=== PATIENT | male | born 2000 | race Caucasian/White ===

== ENCOUNTER 2019-07-30 08:05 | Emergency (ER) | payer SELFPAY ==
[2019-07-30] MEDS ORDERED: Tetracaine 0.5% OPTH.SOL 4 ML* 1 DROP BTL LEFT EYE ONE (08:22)
[2019-07-30 08:24] VITALS: BP 120/74
--- NOTE | 2019-07-30 08:27 | UC ---
Eye Complaint HPI - HPI Summary HPI Summary: WHILE AT WORK YESTERDAY SHOVELING DIRT AND MULCH SOMETHING GOT IN HIS LEFT EYE. HAS CLEAR TEARING AND FOREIGN BODY SENSATION. NO VISUAL DISTURBANCES OR PAIN WITH EXTRAOCULAR MOVEMENTS. PT DOES NOT WEAR GLASSES OR CONTACTS. - History of Current Complaint Stated Complaint: EYE ISSUE Time Seen by Provider: 07/30/19 08:18 Hx Obtained From: Patient Onset/Duration: Sudden Onset, Lasting Hours, Still Present Timing: Constant Severity Initially: Moderate Severity Currently: Moderate Pain Intensity: 4 Pain Scale Used: 0-10 Numeric Character: Foreign Body Sensation Aggravating Factor(s): Nothing Alleviating Factor(s): Nothing Associated Signs And Symptoms: Positive: Drainage (Clear). Negative: Photophobia, Vision Impairment Left - Allergies/Home Medications Allergies/Adverse Reactions: Allergies Allergy/AdvReac Type Severity Reaction Status Date / Time No Known Allergies Allergy Verified 07/30/19 08:16 Home Medications: Home Medications Acetaminophen TAB* [Tylenol TAB*] 325 mg PO Q4H PRN 07/30/19 [History Confirmed 07/30/19] PMH/Surg Hx/FS Hx/Imm Hx Previously Healthy: Yes - Surgical History Surgical History: None - Family History Known Family History: Positive: Non-Contributory - Social History Alcohol Use: Rare Substance Use Type: None Smoking Status (MU): Heavy Every Day Tobacco Smoker Amount Used/How Often: ppd Review of Systems All Other Systems Reviewed And Are Negative: Yes Constitutional: Positive: Negative Eyes: Positive: Drainage, Eye Redness, Other - LEFT EYE FB SENSATION. Negative : Blurred Vision, Diplopia, Photophobia ENT: Positive: Negative Respiratory: Positive: Negative Cardiovascular: Positive: Negative Gastrointestinal: Positive: Negative Physical Exam Triage Information Reviewed: Yes Appearance: Well-Appearing, No Pain Distress, Well-Nourished Vital Signs: Initial Vital Signs Temp 99.2 F 07/30/19 08:12 Pulse 74 07/30/19 08:12 Resp 16 07/30/19 08:12 BP 120/74 07/30/19 08:12 Pulse Ox 100 07/30/19 08:12 Vital Signs Reviewed: Yes Eyes: Positive: Conjunctiva Inflamed - LEFT EYE, Discharge - CLEAR TEARING LEFT EYE, Other: - VISIBLE FB LEFT CORNEA 9 O'CLOCK ENT: Positive: Hearing grossly normal Neck: Positive: Supple Respiratory: Positive: No respiratory distress, No accessory muscle use Cardiovascular: Positive: Pulses Normal Musculoskeletal: Positive: No Edema Neurological: Positive: Alert Psychological: Positive: Age Appropriate Behavior Skin: Negative: Rashes Eye Complaint Course/Dx - Course Course Of Treatment: 1 DROP OF TETRACAINE INSTILLED INTO PATIENTS LEFT EYE. ATTEMPTED TO REMOVE THE FOREIGN BODY HOWEVER PATIENT IS UNABLE TO KEEP HIS EYE OPEN DUE TO ANXIETY ABOUT ANYTHING TOUCHING HIS EYEBALL. DR. RAY'S OFFICE CONTACTED. PATIENT TO GO DIRECTLY TO HIS OFFICE FROM HERE FOR FURTHER TREATMENT. THEY ARE EXPECTING HIM. - Differential Dx/Diagnosis Provider Diagnosis: Foreign body of left eye Discharge ED - Sign-Out/Discharge Documenting (check all that apply): Patient Departure All imaging exams completed and their final reports reviewed: No Studies - Discharge Plan Condition: Stable Disposition: HOME Patient Education Materials: Eye Foreign Body (ED) Forms: *Work Release Referrals: Elmo Ray MD [Medical Doctor] - Additional Instructions: GO DIRECTLY TO DR. RAY'S OFFICE FROM HERE. THEY ARE EXPECTING YOU. INFORM THEM THAT YOU HAD ONE DROP OF TETRACAINE INSTILLED INTO YOUR LEFT EYE. DO NOT RUB YOUR EYE. - Billing Disposition and Condition Condition: STABLE Disposition: Home
== END 2019-07-30 08:40 | disposition home or self-care (01) ==
LOC: UCEAST 08:05
DX: T15.02XA Foreign body in cornea, left eye, initial encounter (principal); Y93.H1 Activity, digging, shoveling and raking; Y92.9 Unspecified place or not applicable; Y99.0 Civilian activity done for income or pay; F41.9 Anxiety disorder, unspecified; F17.200 Nicotine dependence, unspecified, uncomplicated
CPT/HCPCS: 99202; A9270-GY; G0463